=== PATIENT | male | born 1970 | race Caucasian/White ===

== ENCOUNTER → 2021-02-16 | Emergency (ER) | payer OTHER | LOC: M.ERS 19:27 | DX: Z53.21 Procedure and treatment not carried out due to patient leaving prior to being seen by health care provider (principal) ==

== ENCOUNTER 2021-07-20 20:13 | Emergency (ER) | payer OTHER, MEDICAID ==
[~2021-07-20] VITALS: Ht 177.8 cm; Wt 81.7 kg
[2021-07-20] MEDS ORDERED: FLOVENT DISKUS50 MCG INH (20:23)
[2021-07-20] MEDS ORDERED: STEROID INHALER (20:23)
[2021-07-20] MEDS ORDERED: SYMBICORT160 MCG/4. INH (20:51)
[2021-07-20 21:21] VITALS: BP 165/86
--- NOTE | 2021-07-21 10:25 | EKG ---
[place] [address] ELECTROCARDIOGRAM REPORT Name: AZIZACECY Room: [facility]#: [id number] Admission: 07/20/21 Attend Phys: Discharge: 07/20/21 Date of : 66 Date of Service: 07/20/212018 Report #: [id number] THIS REPORT FOR: //name// [facility] ED Test Date: 2021-07-20 Test Time: 20:19:59 Pat Name: CECY ERVIN Department: Room: Gender: Project Management Manager: MD : [id number] Requested By: Lucia Diamond Order Number: [id number] MD: Scottie Dunne Measurements Intervals [place] Rate: 103 P: 59 [place]: 145 QRS: 68 QRSD: 86 T: 50 QT: 349 QTc: 457 Interpretive Statements Sinus tachycardia Borderline low voltage, extremity leads No previous ECG available for comparison Electronically Signed On 07-21-2021 10:25:13 CDT by Scottie Dunne [email or web address] <ELECTRONICALLY SIGNED> By: Scottie Dunne MD, [facility] 07/21/21 1025 18 18 Scottie Dunne MD, FACC /EPI
== END 2021-07-20 21:22 | disposition home or self-care (01) ==
LOC: M.ERS 20:13
DX: J44.9 Chronic obstructive pulmonary disease, unspecified (principal); R06.00 Dyspnea, unspecified; E86.0 Dehydration; R05.9 Cough, unspecified; Z79.899 Other long term (current) drug therapy; Z88.8 Allergy status to other drugs, medicaments and biological substances; Z91.018 Allergy to other foods